=== PATIENT | male | born 1970 | race Caucasian/White ===

== ENCOUNTER 2024-01-17 05:25 | Observation (INO) ==
--- NOTE | 2023-12-23 10:13 | PAT Medication Instructions ---
Medication Instructions Date of Service December 23, 2023 Home Medications albuterol sulfate 90 mcg/actuation aerosol inhaler 2 puff inhalation QID PRN buspirone 15 mg tablet 30 mg PO BID cholecalciferol (vitamin D3) 25 mcg (1,000 unit) chewable tablet 2,000 unit PO DAILY cyanocobalamin (vitamin B-12) 500 mcg tablet 500 mcg PO DAILY losartan 100 mg tablet 100 mg PO QAM meloxicam 15 mg tablet 15 mg PO QAM metformin 1,000 mg tablet 1,000 mg PO BID omeprazole 20 mg capsule,delayed release 40 mg PO BID oxycodone 5 mg tablet 10 mg PO Q6H PRN prazosin 2 mg capsule 2 mg PO HS ropinirole 0.25 mg tablet 0.25 mg PO QPM sildenafil 100 mg tablet 100 mg PO .PRN/UD PRN rosuvastatin 10 mg tablet 10 mg PO HS semaglutide 0.25 mg or 0.5 mg (2 mg/1.5 mL) subcutaneous pen injector 0.25 mg subcut WK escitalopram oxalate 10 mg tablet (Lexapro) 10 mg PO QAM amlodipine 5 mg tablet 5 mg PO HS empagliflozin 10 mg tablet (Jardiance) 25 mg PO QAM melatonin 3 mg tablet 3 mg PO HS PRN STOP 7 days before surgery semaglutide 0.25 mg or 0.5 mg (2 mg/1.5 mL) subcutaneous pen injector 0.25 mg subcut WK STOP 3 days before surgery empagliflozin 10 mg tablet (Jardiance) 25 mg PO QAM ASK your surgeon for instructions meloxicam 15 mg tablet 15 mg PO QAM DO NOT take the morning of surgery cholecalciferol (vitamin D3) 25 mcg (1,000 unit) chewable tablet 2,000 unit PO DAILY cyanocobalamin (vitamin B-12) 500 mcg tablet 500 mcg PO DAILY losartan 100 mg tablet 100 mg PO QAM metformin 1,000 mg tablet 1,000 mg PO BID sildenafil 100 mg tablet 100 mg PO .PRN/UD PRN Take morning of surgery With a small sip of water, OTHERWISE NOTHING TO EAT OR DRINK AFTER MIDNIGHT: albuterol sulfate 90 mcg/actuation aerosol inhaler 2 puff inhalation QID PRN(use if needed; please bring with you to hospital day of surgery if possible) buspirone 15 mg tablet 30 mg PO BID omeprazole 20 mg capsule,delayed release 40 mg PO BID oxycodone 5 mg tablet 10 mg PO Q6H PRN(if needed) escitalopram oxalate 10 mg tablet (Lexapro) 10 mg PO QAM Take evening before surgery albuterol sulfate 90 mcg/actuation aerosol inhaler 2 puff inhalation QID PRN(if needed) buspirone 15 mg tablet 30 mg PO BID metformin 1,000 mg tablet 1,000 mg PO BID omeprazole 20 mg capsule,delayed release 40 mg PO BID oxycodone 5 mg tablet 10 mg PO Q6H PRN(if needed) prazosin 2 mg capsule 2 mg PO HS ropinirole 0.25 mg tablet 0.25 mg PO QPM rosuvastatin 10 mg tablet 10 mg PO HS amlodipine 5 mg tablet 5 mg PO HS melatonin 3 mg tablet 3 mg PO HS PRN(if needed) Other Notes If you have any questions please call us at [phone] or [phone] or [phone] or [phone]
--- NOTE | 2023-12-27 09:46 | Anesthesiology Consultation ---
Date of Service December 27, 2023 Assessment & Plan (1) Encounter for pre-operative examination: - Check BSG AM DOS - Infectious disease screening: Per assessment on 12/27/23: No known infectious disease contacts or current infectious disease symptoms. No noted recent Covid positive test result. Chart Review Chart Review: Acceptable Risk for Surgery and Patient seen in Pre Admission Testing Teaching & Discussion Pre-Anesthesia Teaching/Discussion Notes: Instructed NPO after midnight before surgery,except medications with 15 cc of water. Medication instructions provided according to the PAT guidelines. History Surgery Operation Date: 01/17/24 07:00 Proposed Procedures p C5-C6, C6-C7 Cervical Disc Arthroplasty - Harsh Venegas MD Height/Weight Height: 5 ft 10 in Weight: 106.1 kg Allergies Allergy/AdvReac Type Severity Reaction Status Date / Time aspirin Allergy Unknown Nose bleeds Verified 12/24/23 16:28 paroxetine Allergy Unknown Unknown Verified 12/13/23 11:47 gabapentin AdvReac Dizziness/s Verified 10/25/23 10:01 yncope Medications Home Medications Medication Instructions Recorded Confirmed Last Taken albuterol sulfate 90 mcg/actuation 2 puff inhalation QID PRN 08/02/19 12/13/23 Unknown aerosol inhaler Shortness Of Breath buspirone 15 mg tablet 30 mg PO BID 08/02/19 12/13/23 Unknown cholecalciferol (vitamin D3) 25 2,000 unit PO DAILY 08/02/19 12/13/23 Unknown mcg (1,000 unit) chewable tablet cyanocobalamin (vitamin B-12) 500 500 mcg PO DAILY 08/02/19 12/13/23 Unknown mcg tablet losartan 100 mg tablet 100 mg PO QAM 08/02/19 12/13/23 Unknown meloxicam 15 mg tablet 15 mg PO QAM 08/02/19 12/13/23 Unknown metformin 1,000 mg tablet 1,000 mg PO BIDM 08/02/19 12/13/23 Unknown omeprazole 20 mg capsule,delayed 40 mg PO BID 08/02/19 12/13/23 Unknown release oxycodone 5 mg tablet 10 mg PO Q6H PRN Pain 08/02/19 12/13/23 Unknown prazosin 2 mg capsule 2 mg PO HS 08/02/19 12/13/23 Unknown ropinirole 0.25 mg tablet 0.25 mg PO QPM 08/02/19 12/13/23 Unknown sildenafil 100 mg tablet 100 mg PO .PRN/UD PRN Erectile 08/02/19 12/13/23 Unknown Dysfunction rosuvastatin 10 mg tablet 10 mg PO HS 09/12/20 12/13/23 Unknown semaglutide 0.25 mg or 0.5 mg (2 0.25 mg subcut WK 09/12/20 12/13/23 Unknown mg/1.5 mL) subcutaneous pen injector escitalopram oxalate 10 mg tablet 10 mg PO QAM 06/03/21 12/13/23 Unknown (Lexapro) amlodipine 5 mg tablet 5 mg PO HS 08/13/22 12/13/23 Unknown empagliflozin 10 mg tablet 25 mg PO QAM 11/05/22 12/13/23 Unknown (Jardiance) melatonin 3 mg tablet 3 mg PO HS PRN Sleep 12/13/23 12/13/23 Unknown insulin glargine 10 units INJ DAILY 12/27/23 12/27/23 Unknown Past Medical History Medical History Asthma Cervical pain Depression Diabetes mellitus IDDM Erectile dysfunction Fatty liver GERD (gastroesophageal reflux disease) History of COVID-19 2020- resolved Hx of gout Hx of skin cancer, basal cell Hyperlipemia Hypertension Peripheral neuropathy PTSD (post-traumatic stress disorder) Sleep apnea CPAP Exercise / Class Metabolic Activity II 4-5 Yardwork/Stairs/Walk up hill Past Family History Family History Other No pertinent family history in first degree relatives Past Surgical History Surgical History History of esophagogastroduodenoscopy (EGD) History of lumbar surgery Hx of cardiac catheterization - no stents Hx of colonoscopy Hx of tonsillectomy 2009 Past Anesthesia History No Hx of Anesthesia Complications and No Family Hx of Anesthesia Complications History of PONV No Hx of PONV and No Hx of Motion Sickness Social History Smoking Status: Former smoker Do You Dip or Chew Tobacco: No (QUIT 2008) Smoking End Date: QUIT SMOKING 1999 Hx Alcohol Use: Yes Alcohol type: beer alcohol intake frequency: a few times a month Hx Substance Use: No substance use type: does not use Review of Systems Patient denies chest pain, shortness of breath, dyspnea on exertion, fever, chills, cough, wheezing, palpitations. Physical Exam Vital Signs BP 120/79 P 70 TEMP 98.1 SP02 96%RA RESP 16 Physical Mildly decreased cervical extension range of motion. Full TMJ range of motion. TMD 4 finger breaths Mallampati Score 1 Dentition: missing molars Lungs: clear throughout to auscultation Cardiac: regular rate and rhythm, no murmurs noted Spine: normal Carotid arteries: negative bruit Extremities: no LE edema Lab Results Anesthesia Preop Results Results Anesthesia Widget: Blood Type O Positive 12/27/23 Antibody Screen NEGATIVE 12/27/23 Testing Laboratory Results 12/24/23 WBC 6.2 H/H 16.6/50.0 PLATELETS 225 SODIUM 138 POTASSIUM 4.4 CHLORIDE 102 CO2 29 BUN 22 CREATININE 1.0 GLUCOSE 181 HGBA1C 8.1% (surgeon aware) Electrocardiogram Date: 12/24/23 NSR at 63bpm. "Normal ECG" unconfirmed report. Chest X-Ray Date: 12/27/23 FINDINGS: Cardiomediastinal and hilar silhouettes are within normal limits. There is no pneumothorax, pleural effusion, focal airspace consolidation or overt pulmonary edema. Degenerative changes of the shoulders and spine. IMPRESSION: No acute process.
[2024-01-17] MEDS: LR 60ML/HR IV SCH (06:02)
[2024-01-17] MEDS: LR 15ML/HR IV SCH (06:02)
[2024-01-17] MEDS ORDERED: MIDAZOLAM HCL 1 MG/ML 2ML VIAL ONE (06:34)
[2024-01-17] MEDS ORDERED: fentaNYL citrate PF 100 MCG/2 ML VIAL ONE ×4 (06:34→11:48)
[2024-01-17] MEDS ORDERED: ACETAMINOPHEN 1000 MG/100 ML IV IV ONE (06:49)
[2024-01-17] MEDS ORDERED: FAMOTIDINE/PF 20 MG/2 ML VIAL IV ONE (06:50)
--- NOTE | 2024-01-17 06:56 | History & Physical Bridge Note ---
Date of Service January 17, 2024 History & Physical Bridge Note I have examined the patient, reviewed the History & Physical and in the interval since the performance of the History & Physical I have noted the following changes of clinical significance: no changes noted
[2024-01-17] MEDS ORDERED: ATROPINE SULFATE 0.1 MG/ML 10ML SYR IV PRN (07:01)
[2024-01-17] MEDS ORDERED: ONDANSETRON INJ 2 MG/ML 2 ML VIAL IV PRN ×2 (07:01→11:26)
[2024-01-17] MEDS ORDERED: PROMETHAZINE HCL 6.25 MG in SODIUM CHLORIDE 0.9% 50 ML IV PRN (07:01)
[2024-01-17] MEDS ORDERED: ePHEDrine sulfate 50 MG/ML AMP IV PRN (07:01)
[2024-01-17] MEDS ORDERED: HYDROmorphone INJ 2 MG/ML SYR/VIAL IV PRN (07:01)
[2024-01-17] MEDS: ceFAZolin 2000MG 2,000 MG/15 ML SYR IV SCH (07:09)
[2024-01-17] MEDS ORDERED: DEXAMETHASONE SOD INJ 4 MG/ML VIAL ONE (07:55)
[2024-01-17] MEDS ORDERED: LIDOCAINE 2% 2 ML VIAL/AMP(20MG/ML) INFIL ONE (07:55)
[2024-01-17] MEDS ORDERED: ONDANSETRON INJ 2 MG/ML 2 ML VIAL ONE (07:55)
[2024-01-17] MEDS ORDERED: SUGAMMADEX SODIUM 200 MG/2 ML VIAL IV ONE (07:55)
[2024-01-17] MEDS ORDERED: LARYING-O-JET KIT (LTA) ONE (07:55)
[2024-01-17] MEDS ORDERED: METOCLOPRAMIDE HCL INJ 5 MG/ML 2 ML VIAL ONE (07:55)
[2024-01-17] MEDS ORDERED: ROCURONIUM BROMIDE 10 MG/ML 5 ML VIAL IV ONE ×3 (07:55→10:10)
[2024-01-17] MEDS ORDERED: ePHEDrine sulfate 50 MG/ML AMP ONE (08:56)
[2024-01-17] MEDS ORDERED: HYDROmorphone INJ 2 MG/ML SYR/VIAL ONE (09:18)
[2024-01-17] MEDS ORDERED: PROPOFOL IV EMULSION 10 MG/ML 20 ML VIAL IV ONE (10:22)
[2024-01-17] MEDS: THROMBIN 5000 UNITS KIT ONE (11:03)
[2024-01-17] MEDS: GELATIN SPONGE 12-7MM ONE ×2 (11:03)
[2024-01-17] MEDS: FLOSEAL HEMOSTATIC MATRIX 10ML TOP ONE (11:03)
[2024-01-17] MEDS: VANCOMYCIN HCL 1000MG/20ML VIAL ONE (11:04)
--- NOTE | 2024-01-17 11:24 | Post Operative Brief Note ---
PG Immediate Post Op with CF Date of Surgery January 17, 2024 Pre & Post Diagnosis Operation Date: 01/17/24 07:00 Pre-Op Diagnosis: Cervical Radiculopathy, Cervical Pain Post-Op Diagnosis: Cervical Radiculopathy, Cervical Pain I identified the patient and participated in the time-out.: Yes Procedure Operation Date: 01/17/24 07:00 Actual Procedures p C5-C6, C6-C7 Cervical Disc Arthroplasty(Not Applicable) - Harsh Venegas MD Surgeon Harsh Venegas MD Automation Tender none Estimated Blood Loss 5 (.) Findings Consistent with Post-Op Diagnosis Specimens Specimen Description: no specimen per surgeon Drains Blanca Catheter (130ml urine collected)
[2024-01-17] MEDS ORDERED: FAMOTIDINE 20 MG TAB PO PRN (11:26)
[2024-01-17] MEDS ORDERED: ACETAMINOPHEN 500 MG TAB PO PRN (11:26)
[2024-01-17] MEDS ORDERED: NALOXONE HCL 0.4 MG/1 ML VIAL/CARP IV PRN (11:26)
[2024-01-17] MEDS ORDERED: ONDANSETRON 4 MG OD TAB PO PRN (11:26)
[2024-01-17] MEDS ORDERED: hydrOXYzine HCl 25 MG TAB PO PRN (11:26)
[2024-01-17] MEDS ORDERED: dexAMETHasone 8 MG in SYRINGE 0 ML IV PRN (11:26)
[2024-01-17] MEDS ORDERED: MAGNESIUM HYDROXIDE SUSP 30 ML UDC PO PRN (11:26)
[2024-01-17] MEDS ORDERED: DO NOT ADMINISTER PNEUMOCOCCAL VACCINE PRN (11:26)
[2024-01-17] MEDS ORDERED: LORazepam 0.5 MG TAB PO PRN (11:26)
[2024-01-17] MEDS ORDERED: PROMETHAZINE HCL 12.5 MG in SODIUM CHLORIDE 0.9% 50 ML IV PRN (11:26)
[2024-01-17] MEDS ORDERED: METOCLOPRAMIDE HCL INJ 5 MG/ML 2 ML VIAL IV PRN (11:26)
[2024-01-17] MEDS ORDERED: LORazepam 0.5 MG in SYRINGE 0.25 ML IV PRN (11:26)
[2024-01-17] MEDS ORDERED: ALUMINUM/MAGNESIUM SUSP 30 ML UDC PO PRN (11:26)
[2024-01-17] MEDS ORDERED: diphenhydrAMINE Capsule 25 MG CAP PO PRN (11:26)
[2024-01-17] MEDS ORDERED: ACETAMINOPHEN 1,000 MG/100 ML VIAL IV PRN (11:26)
[2024-01-17] MEDS ORDERED: SOD PHOSPHATE/SOD BIPHOSPHATE ENEMA 132 ML BTL PR PRN (11:26)
[2024-01-17] MEDS ORDERED: RACEPINEPHRINE 2.25% NEBU SOLN 0.5 ML VIAL INH PRN (11:26)
[2024-01-17] MEDS ORDERED: DO NOT ADMINISTER FLU VACCINE PRN (11:26)
[2024-01-17] MEDS ORDERED: bisacodyL 10 MG SUPP PR PRN (11:26)
[2024-01-17] MEDS: fentaNYL citrate PF 100 MCG/2 ML VIAL IV PRN (11:50)
--- NOTE | 2024-01-17 11:54 | Fluoroscopy Report ---
FL cervical 2-3V CLINICAL HISTORY: ACDF C5-C7 COMPARISON STUDY: None. FLUOROSCOPY TIME: 178 seconds FLUOROSCOPY IMAGES: 6 Ka,r: 157 mGy FINDINGS: Endotracheal tube is partially visualized on this study. Anterior cervical discectomy and f usion at C5-C6 and C6-C7. IMPRESSION: Fluoroscopic assistance as above ACT 112: Negative or not required by law. Electronically signed by: Diego Schafer M.D. 01/17/2024 11:53 AM
[2024-01-17] MEDS ORDERED: [UNRECOGNIZED DRUG - REMARK] SQ SCH (12:57)
[2024-01-17] MEDS ORDERED: ALBUTEROL HFA 8 GM INHALER INH PRN (12:57)
[2024-01-17] MEDS ORDERED: PHARMACY GLYCEMIC MGMT CONSULT PRN (13:02)
[2024-01-17] MEDS: LACTATED RINGER'S 1,000 ML IV SCH (13:07)
--- NOTE | 2024-01-17 13:09 | Hospitalist Consultation ---
Date of Consultation January 17, 2024 Assessment & Plan (1) Cervical radiculopathy: S/p C5-C6, C6-C7 cervical disc arthroplasty with Dr. Venegas on 01/17/2024 Pain management, perioperative antibiotics, DVT PPx, and fluids per the primary team PT/OT consulted Neurovascular checks q2h x 12 Added on A.m. CBC, BMP; we will follow (2) Diabetes mellitus: Last A1c at 8.1% on 12/24/2023 Patient reports he took his morning insulin 5u Hold home metformin Advance to T2DM diet as tolerated BSG ACHS Hypoglycemia medications as needed Adjust regimen as needed Pharmacy glycemic consult (3) Sleep apnea: Per review of vitals, patient required 9L Oxymask following surgery He uses CPAP twice weekly No other supplemental oxygen use at home Will defer adding on CPAP for now in the setting of recent neck surgery Continuous pulse oximetry Continue supplemental oxygen as needed, and wean down as tolerated A.m. VBG (4) Hypertension: Will hold p.m. amlodipine on 01/16 Hold a.m. losartan 100 mg on 01/17; may be okay to give pending BP reassessment i n the morning (5) Depression: Continue escitalopram, BuSpar Plan Agree with current medical management: Disposition: MedSurg Clear liquid diet, and advance to T2DM diet as tolerated VTE PPx: SCDs/teds Thank you for allowing us to participate in the care of this patient; please reach out with any questions or concerns. We will continue to follow. History of Present Illness Reason for Consultation: Medical Management Requesting Physician: Harsh Venegas MD Attending Physician: Harsh Venegas MD History of Present Illness Ricky is a 53yo male with PMH of cervical radiculopathy. He presented for a C5-C6, C6-C7 cervical disc arthroplasty with Dr. Harsh Venegas on 01/17/24. Per review of brief operative note, EBL was listed as 5 cc, and findings were consistent with postop diagnosis. Per review of patient vitals, he has been mildly hypertensive postop; SpO2 96% on 4L NC. Patient does not use supplemental oxygen at home. He does endorse 6/10 pain in his neck bilaterally, which he characterizes as "stiffness". The stiffness is worse on his left side. No radiation down the arms, or down the spine. He does note that he has some mild, intermittent numbness and tingling in his right fingertips. No new complaints at this time. He has been tolerating water and fluids well since being up, but has not tried eating yet. He also has not been up to use the bathroom yet. Patient reports that he took his regular morning medications as instructed (only took his BuSpar, Prilosec, and insulin 5u; he has not had any blood pressure medications today). ROS: Patient endorses neck stiffness/pain (worse on the left side), feeling hot/sweaty, mild numbness and tingling in his right fingertips, tremor in his right arm (which is not new, and was present prior to surgery), and some numbness and tingling in his groin region (which patient attributes to Blanca) Patient denies fever, chills, dizziness, lightheadedness, headache, changes in vision (blurry vision, photophobia, loss of vision), chest pain, chest palpitations, pleuritic CP, SOB, cough, abdominal pain, N/V/D, or numbne ss/tingling/pain in the legs. Allergies Allergy/AdvReac Type Severity Reaction Status Date / Time aspirin Allergy Unknown Nose bleeds Verified 01/17/24 05:44 paroxetine Allergy Unknown Unknown Verified 01/17/24 05:44 gabapentin AdvReac Dizziness/s Verified 01/17/24 05:44 yncope Home Medications Medication Instructions Recorded Confirmed Type albuterol sulfate 90 mcg/actuation 2 puff inhalation QID PRN 08/02/19 01/17/24 History aerosol inhaler Shortness Of Breath buspirone 15 mg tablet 30 mg PO BID 08/02/19 01/17/24 History cholecalciferol (vitamin D3) 25 2,000 unit PO DAILY 08/02/19 01/17/24 History mcg (1,000 unit) chewable tablet cyanocobalamin (vitamin B-12) 500 500 mcg PO DAILY 08/02/19 01/17/24 History mcg tablet losartan 100 mg tablet 100 mg PO QAM 08/02/19 01/17/24 History meloxicam 15 mg tablet 15 mg PO QAM 08/02/19 01/17/24 History metformin 1,000 mg tablet 1,000 mg PO BIDM 08/02/19 01/17/24 History omeprazole 20 mg capsule,delayed 40 mg PO BID 08/02/19 01/17/24 History release oxycodone 5 mg tablet 10 mg PO Q6H PRN Pain 08/02/19 01/17/24 History prazosin 2 mg capsule 2 mg PO HS 08/02/19 01/17/24 History ropinirole 0.25 mg tablet 0.25 mg PO QPM 08/02/19 01/17/24 History sildenafil 100 mg tablet 100 mg PO .PRN/UD PRN Erectile 08/02/19 01/17/24 History Dysfunction rosuvastatin 10 mg tablet 10 mg PO HS 09/12/20 01/17/24 History semaglutide 0.25 mg or 0.5 mg (2 0.25 mg subcut WK 09/12/20 01/17/24 History mg/1.5 mL) subcutaneous pen injector escitalopram oxalate 10 mg tablet 10 mg PO QAM 06/03/21 01/17/24 History (Lexapro) amlodipine 5 mg tablet 5 mg PO HS 08/13/22 01/17/24 History empagliflozin 10 mg tablet 25 mg PO QAM 11/05/22 01/17/24 History (Jardiance) melatonin 3 mg tablet 3 mg PO HS PRN Sleep 12/13/23 01/17/24 History insulin glargine 5 units INJ DAILY 12/27/23 01/17/24 History Patient History Medical History (Updated 01/17/24 @ 14:17 by Diego Nunez PA-C) Depression Sleep apnea CPAP Diabetes mellitus IDDM GERD (gastroesophageal reflux disease) Hx of gout Asthma Peripheral neuropathy Fatty liver Hx of skin cancer, basal cell History of COVID-19 2020- resolved Cervical pain Erectile dysfunction PTSD (post-traumatic stress disorder) Hyperlipemia Hypertension Surgical History Hx of cardiac catheterization - no stents History of esophagogastroduodenoscopy (EGD) Hx of colonoscopy Hx of tonsillectomy 2009 History of lumbar surgery Family History Other No pertinent family history in first degree relatives Social History Smoking Status: Former smoker Tobacco Type: Cigarettes Smoking End Date: QUIT SMOKING 1999; Second Hand Exposure: No; Do You Dip or Chew Tobacco: No (QUIT 2008); Tobacco Cessation Education Requested by Patient: No Hx Alcohol Use: Yes Alcohol type: beer Hx Substance Use: No Preferred Language: Latvian Communication Ability: Effective Visual Impairment: No Limitations Hearing Ability: Normal Fruit Inspector Required: No Beliefs That Will Affect Care: None marital status: Current Living Situation: Family current occupational status: retired Other Information That Helps Us Care for You: No Feels Safe at Home: Yes Safety Concerns: Feels Safe At This Time Assistive Devices: CPAP and Hearing Aid - Bilateral Review of Systems Review of Systems: See HPI above Physical Exam Physical Exam: General: Mild physical distress secondary to neck stiffness; non-toxic appearing; well-nourished; cooperative; SpO2 96% on 4 L NC HEENT: normocephalic, atraumatic; no scleral icterus; PERRLA w/ EOMs intact; moist mucus membrane; vision and hearing grossly intact Neck: stiff; trachea midline; patient demonstrates ability to shrug shoulders bilaterally without pain; patient has some pain when rotating neck to the left Skin: warm, dry without signs of tenting; no cyanosis; no rashes, bruising, lesions, or erythema noted CV: chest wall NTP; RRR; S1/S2 normal; no murmurs/rubs/gallops; pulses intact and symmetric at radial, DP, and PT Lungs: no acute respiratory distress; symmetrical chest wall expansion; clear breath sounds across all lung kowalski w/o adventitious sounds; no wheezing ABD: Soft, NTP; BS present; no rebound/guarding; no distention MSK: no tics or fasciculations; no edema noted in the LEs b/l, nonerythematous; 5/5 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; patient has intact, symmetric strength in the LEs bilaterally Neuro: A&Ox3; normal mood and affect; fluent speech; no focal deficits; sensation intact, symmetric in the UEs/LEs bilaterally; mildly diminished sensation on the left anterior neck when compared to the right Results & Data Results & Data Vital Signs (Past 12 Hours) Vital Signs Temp Pulse Pulse Resp BP BP Pulse Ox 01/17/24 12:40 94 H 15 150/93 H 93 01/17/24 12:30 87 12 132/80 94 01/17/24 12:20 36.8 C 88 14 144/82 H 93 01/17/24 12:10 91 H 12 160/100 H 92 01/17/24 12:00 93 H 16 150/100 H 93 01/17/24 11:50 97 H 16 178/84 H 95 01/17/24 11:40 84 12 148/90 H 95 01/17/24 11:32 36.1 C L 81 12 150/93 H 95 01/17/24 05:57 36.5 C 65 20 140/89 97 O2 Del Method O2 Flow Rate 01/17/24 12:40 Nasal Cannula 4 01/17/24 12:30 Nasal Cannula 4 01/17/24 12:20 Nasal Cannula 4 01/17/24 12:10 Nasal Cannula 4 01/17/24 12:00 Oxymask 4 01/17/24 11:50 Oxymask 9 01/17/24 11:40 Oxymask 9 01/17/24 11:32 Oxymask 9 01/17/24 05:57 Room Air Laboratory Results Abnormal lab results 01/17/24 01/17/24 Range/Units 06:02 11:36 POC Glucose 163 H 203 H (70-99) mg/dl Diagnostic Findings Cervical Spine X-Ray 01/17/24 07:00 FL cervical 2-3V CLINICAL HISTORY: ACDF C5-C7 COMPARISON STUDY: None. FLUOROSCOPY TIME: 178 seconds FLUOROSCOPY IMAGES: 6 Ka,r: 157 mGy FINDINGS: Endotracheal tube is partially visualized on this study. Anterior cervical discectomy and fusion at C5-C6 and C6-C7. IMPRESSION: Fluoroscopic assistance as above ACT 112: Negative or not required by law. Electronically signed by: Diego Schafer M.D. 01/17/2024 11:53 AM PG Care Time/CCT Total # of Minutes Spent Total Time Spent with Patient: Total time spent is greater than 50% in coordination of care (as documented) at patient's floor/unit and/or counseling patient: [place] [address] IN/OBS CONSULT LVL 3,45M Patient Type New History Comprehensive Exam Comprehensive Medical Decision Making Moderate Complexity Diagnoses Cervical radiculopathy M54.12 Diabetes mellitus E11.9 Sleep apnea G47.30 Hypertension I10 Depression F32.9
[2024-01-17] MEDS ORDERED: DEXTROSE 50% 50 ML SYRINGE IV PRN (13:14)
[2024-01-17] MEDS ORDERED: GLUCOSE 40% GEL 15 GM TUBE PO PRN (13:14)
[2024-01-17] MEDS ORDERED: GLUCAGON FOR INJ 1 MG VIAL SQ PRN (13:14)
[2024-01-17] MEDS ORDERED: CARBOHYDRATES FOR HYPOGLYCEMIA PO PRN (13:14)
[2024-01-17] MEDS ORDERED: GLUCOSE 10 TAB/TUBE PO PRN (13:14)
--- NOTE | 2024-01-17 13:33 | Anesthesiology Progress Note ---
Date of Service January 17, 2024 Anesthesia Post Procedure Vital Signs Vital Signs: Temp Pulse Pulse Resp BP BP Pulse Ox 01/17/24 13:16 36.7 C 90 142/89 H 96 01/17/24 12:45 36.7 C 93 H 16 153/87 H 97 01/17/24 12:40 94 H 15 150/93 H 93 01/17/24 12:30 87 12 132/80 94 01/17/24 12:20 36.8 C 88 14 144/82 H 93 01/17/24 12:10 91 H 12 160/100 H 92 01/17/24 12:00 93 H 16 150/100 H 93 01/17/24 11:50 97 H 16 178/84 H 95 01/17/24 11:40 84 12 148/90 H 95 01/17/24 11:32 36.1 C L 81 12 150/93 H 95 01/17/24 05:57 36.5 C 65 20 140/89 97 O2 Del Method O2 Flow Rate 01/17/24 13:16 Nasal Cannula 4 01/17/24 12:45 Nasal Cannula 4 01/17/24 12:40 Nasal Cannula 4 01/17/24 12:30 Nasal Cannula 4 01/17/24 12:20 Nasal Cannula 4 01/17/24 12:10 Nasal Cannula 4 01/17/24 12:00 Oxymask 4 01/17/24 11:50 Oxymask 9 01/17/24 11:40 Oxymask 9 01/17/24 11:32 Oxymask 9 01/17/24 05:57 Room Air Pain Intensity Neck: Pain Intensity: 6 Transfer of Care Handoff Completed per policy Notes Mental Status: alert / awake / arousable and participated in evaluation Patient Amnestic to Procedure: Yes Nausea / Vomiting: adequately controlled Pain: adequately controlled Airway Patency, RR, SpO2: stable & adequate BP & HR: stable & adequate Hydration State: stable & adequate Anesthetic Complications: no major complications apparent
[2024-01-17] MEDS: HYDROmorphone INJ 0.5 MG/0.5 ML SYR IV PRN (13:35)
[2024-01-17] MEDS: INSULIN ASPART PER UNIT CHARGE SC SCH (14:32)
[2024-01-17] MEDS: LANTUS PER UNIT CHARGE SC ONE ×2 (14:32→20:44)
--- NOTE | 2024-01-17 14:39 | Pharmacy Report ---
Pharmacy Glycemic Short Note 2 - Date of Service January 17, 2024 - Glycemic Short BSG Results (Last 24 hours): 01/17/24 01/17/24 01/17/24 06:02 11:36 13:27 POC Glucose 163 H 203 H 217 H OUTPATIENT ANTIDIABETIC REGIMEN: * Jardiance 10mg PO QAM * metformin ER 1000mg PO BIDM * Ozempic 0.25mg QSunday * Lantus 5 units SQ daily ASSESSMENT: * Ricky is a 53 YOM admitted status post cervical disc arthroplasty and a history of diabetes mellitus. Pharmacy has been consulted for glycemic managment while inpatient. Unclear if patient has been compliant with his outpatient regimen [facility]. * Preoperative BSG ok but slightly elevated, BSGs tod by midday over 200mg/dL, it appears that IV dexamethasone was given. Will give ~0.2unit/kg now to cover and add a scale at bedtime aiming for a total basal dose around a weight based stress of 2-3. * NovoLog initiated at a weight based stress of 3, no additional steroids noted at this time, consider looser parameters as steroid effects wear off. PLAN FOR INPATIENT GLYCEMIC CONTROL: * Hold outpatient oral diabetes medications * Basal insulin * Lantus 20 units SQ x1 * Lantus 0-20 units SQ HS (see eMAR for additional details) * Bolus insulin * NovoLog per scale ACHS or Q6hrs while NPO * Goal Range: Low 110 mg/dL - High 140 mg/dL * Correction Factor: 20 mg/dL/unit * Nutritional / Prandial insulin per carb ratio of 1 unit per 6 grams CHO consumed
[2024-01-17] MEDS: ceFAZolin 1000MG 1,000 MG/7.5 ML SYR IV SCH (16:36)
[2024-01-17] MEDS ORDERED: metFORMIN HCL 500 MG TAB PO SCH (17:00)
[2024-01-17] MEDS: oxyCODONE/ACETAMINOPHEN 5mg/325mg TAB PO PRN (19:40)
[2024-01-17] MEDS: busPIRone 15 MG TAB PO SCH (19:40)
[2024-01-17] MEDS: PRAZOSIN HCL 1 MG CAP PO SCH (19:40)
[2024-01-17] MEDS: rOPINIRole HCL 0.25 MG TABLET PO SCH (19:41)
[2024-01-17] MEDS: DOCUSATE SODIUM/SENNA 50/8.6MG TAB PO SCH (19:41)
[2024-01-17] MEDS: PANTOprazole 40 MG TAB PO SCH (19:41)
[2024-01-17] MEDS ORDERED: amLODIPine BESYLATE 5 MG TAB PO SCH (21:00)
[2024-01-18] MEDS: POLYETHYLENE (MIRALAX) 17 GM PACK PO SCH (05:54)
[2024-01-18 06:36] LABS: Base Excess VBG 7.8 mEq/L; HCO3 VBG 34 mmol/L; Oxygen Saturation VBG 67.3 %; PCO2 VBG 54 mmHg (38-50); PO2 VBG 37 mmHg; pH VBG 7.41 (7.36-7.41)
[2024-01-18 06:53] LABS: Basophils # (auto) 0.01 K/uL (0.00-0.20); Basophils % (auto) 0.1 %; Eosinophils # (auto) 0.04 K/uL (0.00-0.50); Eosinophils % (auto) 0.4 %; Hematocrit (blood only) 46.7 % (42.0-52.0); Hemoglobin 15.7 g/dl (14.0-18.0); Immature Granulocytes # (auto) 0.03 K/uL (0.01-0.20); Immature Granulocytes % (auto) 0.3 %; Lymphocytes # (auto) 1.65 K/uL (1.20-3.40); Lymphocytes % (auto) 16.3 %; Mean Corpuscular Hemoglobin 29.7 pg (25.0-34.0); Mean Corpuscular Hgb Conc 33.6 g/dL (32.0-36.0); Mean Corpuscular Volume 88.4 fL (80.0-100.0); Mean Platelet Volume 10.2 fL (9.4-12.4); Monocytes # (auto) 0.89 K/uL (0.11-0.59); Monocytes % (auto) 8.8 %; Neutrophils # (auto) 7.53 K/uL (1.40-6.50); Neutrophils % (auto) 74.1 %; Platelet Count 200 K/uL (130-400); RDW Coefficient of Variation 12.3 % (11.5-14.5); RDW Standard Deviation 39.8 fL (36.4-46.3); Red Blood Count 5.28 M/uL (4.70-6.10); White Blood Count 10.15 K/ul (4.8-10.8)
[2024-01-18 07:12] LABS: BUN Creatinine Ratio 15.6 (10-20); Calcium 9.4 mg/dl (8.6-10.3); Creatinine Clr Calc Pharmacy 117.7 ml/min; Est GFR (African American) 114.2 ml/min; Est GFR (Non-African American) 98.5 ml/min
[2024-01-18] MEDS: ESCITALOPRAM OXALATE 10 MG TAB PO SCH (08:10)
[2024-01-18] MEDS: metFORMIN HCL ER 500 MG TABCR PO SCH (08:16)
[2024-01-18] MEDS ORDERED: LOSARTAN POTASSIUM 50 MG TAB PO SCH (09:00)
[2024-01-18] MEDS ORDERED: EMPAGLIFLOZIN 25 MG TAB PO SCH (09:00)
[2024-01-18] MEDS ORDERED: INSULIN GLARGINE 5 UNIT INJ SCH (09:00)
--- NOTE | 2024-01-18 11:24 | Orthopedic Progress Note ---
Date of Service January 18, 2024 Assessment & Plan (1) Status post cervical disc replacement: Overall, he is doing quite well today with good pain control to the cervical spine. He will work with physical therapy later this morning to work on ambulation and range of motion exercises. He can be discharged home later this morning pending formal physical therapy evaluation and recommendations. Dr. Venegas would also like him discharged on a muscle relaxer. Cyclobenzaprine was sent into his pharmacy. He will follow-up with Dr. Venegas in 2 weeks for postoperative management. Patient was seen and evaluated by Dr. Venegas which helped formulate this plan Subjective . Ricky was seen this morning resting comfortably in no apparent distress. He notes a little bit of soreness to the neck but overall is doing quite well today. He has been up and out of bed with no significant issues. He is yet to work with physical therapy today. He denies any other concerns today. Review of Systems All systems reviewed & are unremarkable except as noted in HPI & below. Physical Exam . On physical examination of the cervical spine, dressings are clean, dry, intact. Motor and sensory function to the upper extremity grossly intact. +2 radial pulse. Less than 2-second capillary refill. Normal sensation. Neurovascular intact. Results & Data Results & Data Laboratory Results . Diagnostic Findings . PG Care Time/CCT Total # of Minutes Spent Total Time Spent with Patient: Total time spent is greater than 50% in coordination of care (as documented) at patient's floor/unit and/or counseling patient: Coding Level of Care Code 16164 Post Operative Follow-Up Diagnoses Status post cervical disc replacement Z98.890
--- NOTE | 2024-01-18 11:26 | Discharge Summary ---
Date of Service January 18, 2024 Principal Diagnosis Same as "Discharge Diagnosis" noted below under Discharge Instructions. Discharge Exam . On physical examination of the cervical spine, dressings are clean, dry, intact. Motor and sensory function to the upper extremity grossly intact. +2 radial pulse. Less than 2-second capillary refill. Normal sensation. Neurovascular intact. Discharge Data Consultations 01/17/24 11:26 Consult Hospitalist Routine Procedures Performed Operation Date: 01/17/24 07:00 Actual Procedures p C5-C6, C6-C7 Cervical Disc Arthroplasty(Not Applicable) - Harsh Venegas MD Ordered Studies 01/17/24 07:00 FL cervical 2-3V Routine Hospital Course (1) Status post cervical disc replacement: On January 17, 2024 Ricky arrived at [facility] and underwent a C5-C6 and C6-C7 cervical disc arthroplasty performed by Dr. Venegas with no complications. He had a general anesthetic. Postoperatively, he was transferred to the PACU for immediate postoperative management and then transferred to the general orthopedic floor in stable condition. His hospital course was uneventful. On postoperative day #1, his vital signs were stable and his pain was well-controlled. He participated well with physical therapy working on ambulation and range of motion exercises. He was then discharged home in stable condition. He will follow-up in [address] Venegas for postoperative management. PG Care Time/CCT Total # of Minutes Spent Total Time Spent with Patient: Total time spent is greater than 50% in coordination of care (as documented) at patient's floor/unit and/or counseling patient: Discharge Plan Discharge Items Patient Disposition: Home - Self-Care Reason For Visit: Cervical Radiculopathy, Cervical Pain Discharge Diagnosis: Same Activity: Per Instructions section Non-emergency contact: Surgeon Call non-emergency contact if: your temperature is above 101.5, your wound has increased redness, your wound has increased drainage and your wound pain has increased Follow-up/Referrals: Kehinde Pittman, SENIOR BUSINESS MANAGER-C [Primary Care Provider] - Diet: Regular Ambulatory Orders: XR chest Pre-admission PA/Lat (Routine) Timeframe: 1 Day Location: Determined by Patient Ordered By: Monet Cunningham Attending Provider Instructions: Please follow Dr. Venegas Post Operative Instructions that were given in the office upon scheduling surgery. -Dressings will be changed prior to discharge. -Keep Surgical site dry for the next 3 days. -May shower after 3 days with no soaking of the surgical site -May leave surgical site open to air if dry. -Cover the surgical site with a bandage if draining or getting caught on clothes. -Take it easy for the next 2 weeks. (Ex: No Lifting, running, bending, or twisting, etc.). -You will F/u with Dr. Venegas in 2 weeks for postoperative care. -If any questions or concerns in the mean time, Reach out to [facility] at [phone] Pending Studies at Discharge: No Stand-Alone Forms: My [facility], Smoking Cessation Medications and DC Order Prescriptions: New oxycodone 5 mg tablet 5 mg PO Q6H PRN (Reason: pain) Qty: 24 0RF cyclobenzaprine 5 mg tablet 5 mg PO TID PRN (Reason: muscle spasm) Qty: 24 0RF Continued escitalopram oxalate [Lexapro] 10 mg tablet 10 mg PO QAM Jardiance 10 mg tablet 25 mg PO QAM rosuvastatin 10 mg tablet 10 mg PO HS semaglutide 0.25 mg or 0.5 mg(2 mg/1.5 mL) pen injector 0.25 mg subcut WK Patient Comments: SUNDAYS albuterol sulfate 90 mcg/actuation Hfa Aerosol Inhaler 2 puff INHALATION QID PRN (Reason: Shortness Of Breath) buspirone 15 mg tablet 30 mg PO BID cholecalciferol (vitamin D3) 1,000 unit Tablet,Chewable 2,000 unit PO DAILY cyanocobalamin (vitamin B-12) 500 mcg Tablet 500 mcg PO DAILY losartan 100 mg tablet 100 mg PO QAM metformin 1,000 mg tablet 1,000 mg PO BIDM omeprazole 20 mg capsule,delayed release(DR/EC) 40 mg PO BID prazosin 2 mg capsule 2 mg PO HS ropinirole 0.25 mg tablet 0.25 mg PO QPM Rx Instructions: TAKE THIS MED 3 HOURS PRIOR TO BEDTIME sildenafil 100 mg tablet 100 mg PO .PRN/UD PRN (Reason: Erectile Dysfunction) amlodipine 5 mg tablet 5 mg PO HS melatonin 3 mg Tablet 3 mg PO HS PRN (Reason: Sleep) insulin glargine 5 units INJ DAILY Discontinued meloxicam 15 mg tablet 15 mg PO QAM oxycodone 5 mg tablet 10 mg PO Q6H PRN (Reason: Pain) Discharge Orders: Discharge Order (Routine); Ordered 01/18/24 Ordered By: Dom Hanna Admission Data Admit Date/Time: 01/17/24 11:26 Attending Provider: Harsh Venegas Admit Provider: Harsh Venegas Primary Care Provider: Kehinde Pittman Other Providers: Ga Jorge Other Interventions: Discharge Summary Assessment (RN) Last Done: 01/18/24 11:28
--- NOTE | 2024-01-20 15:55 | Operative Report ---
PG Post Operative Report Pre & Post Diagnosis Operation Date: 01/17/24 07:00 Pre-Op Diagnosis: Cervical Radiculopathy, Cervical Pain Post-Op Diagnosis: Cervical Radiculopathy, Cervical Pain I identified the patient and participated in the time-out.: Yes Procedure Operation Date: 01/17/24 07:00 Actual Procedures p C5-C6, C6-C7 Cervical Disc Arthroplasty(Not Applicable) - Harsh Venegas MD Surgeon Harsh Venegas MD Software Engineering Specialist none Estimated Blood Loss 5 (.) Findings Consistent with Post-Op Diagnosis Specimens None Description of Procedure 1. C5-6 anterior cervical decompression with artificial disc replacement, Mobi- C 17 x 19 x 5 mm ([id number]) 2. C6-7 anterior cervical decompression with artificial disc replacement, Mobi- C 17 x 19 x 5 mm ([id number]) Patient was taken the operating room after adequate anesthesia was carefully positioned supine on the OSI flat top table. Preprepped was performed followed by positioning, fluoroscopy was brought in and utilized to benedicto for the area for the incision approaching the levels mentioned. Prep and drape was performed, I began the procedure with a transverse incision on the left side of the cervical spine and then mobilized down to the anterior aspect of the cervical spine. I confirmed my location using fluoroscopy followed by then mobilization of the tissues in the area of the 2 levels to be addressed. Distractor pins were then placed at C6 and C7, once in place retractors were set and then I mobilized the disc materials removing the disc and cartilage from the endplates doing a thorough discectomy. Upon reaching the posterior aspect the spondylosis was thinned and removed using the high-speed bur followed by combination curettes and Kerrison punches to complete the decompression across the disc space. Trial spacers were then utilized and I selected a size artificial disc replacement as noted which appeared to fit the disc space as best, and the artificial disc was then obtained, and using fluoroscopy I tapped it into excellent position on AP and lateral views. The distractor pin at C7 was then removed, Floseal and bone wax was applied, and the pin was then placed at the C5 level. The same procedure was then performed with resetting the retractors, performing an annulotomy, and a thorough discectomy at this level including a posterior cervical decompression. This appeared to mimic the other level in terms of dimensions, a trial was then utilized followed by then placement of the same size disc replacement tapped into position in an identical fashion with excellent position. Final inspection revealed no issues, the distractor pins were removed, Floseal was applied along with bone wax, final images were then obtained, vancomycin powder was placed along with closure using 3-0 Vicryl sutures. Sterile dressing was applied after placement of Steri-Strips, the patient tolerated procedure well was taken recovery room in satisfactory condition. I attest to the content of the Intraoperative Record and any orders documented therein. Any exceptions are noted below.
== END 2024-01-18 12:05 | disposition home or self-care (01) ==
LOC: ASU 05:25 → 3E 05:25
DX: Z88.8 Allergy status to other drugs, medicaments and biological substances; J45.909 Unspecified asthma, uncomplicated; E78.5 Hyperlipidemia, unspecified; M50.122 Cervical disc disorder at C5-C6 level with radiculopathy; I10 Essential (primary) hypertension; Z86.16 Personal history of COVID-19; Z79.1 Long term (current) use of non-steroidal anti-inflammatories (NSAID); Z79.84 Long term (current) use of oral hypoglycemic drugs; Z79.85 Long-term (current) use of injectable non-insulin antidiabetic drugs; Z87.891 Personal history of nicotine dependence; G47.33 Obstructive sleep apnea (adult) (pediatric); K21.9 Gastro-esophageal reflux disease without esophagitis; F32.A Depression, unspecified; Z79.4 Long term (current) use of insulin; K76.0 Fatty (change of) liver, not elsewhere classified; Z88.6 Allergy status to analgesic agent; Z79.899 Other long term (current) drug therapy; E11.9 Type 2 diabetes mellitus without complications